=== PATIENT | female | born 1990 | race Caucasian/White ===

== ENCOUNTER 2024-05-30 08:39 | Emergency (ER) | payer OTHER, SELFPAY ==
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
[2024-05-30 09:13] VITALS: BP 127/80; PULSE 89; RESP 16; TEMP 36.8; O2SAT 99; BMI 18.6
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
[2024-05-30] MEDS: AMOXICILLIN/CLAVULANATE POTASSIUM 875/125MG TABLET 1 EACH PO (09:37)
[2024-05-30] MEDS: IBUPROFEN 400 MG TABLET 800 MG PO (09:37)
[2024-05-30] MEDS: ONDANSETRON 4MG ODT 4 MG SL (09:38)
[2024-05-30] MEDS: ACETAMINOPHEN 500MG TAB 1000 MG PO (09:38)
[2024-05-30 09:42] LABS: Urine Pregnancy, HCG Qual. Negative (Negative)
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
[2024-05-30] MEDS: TET/DIPHTH/PERT-ADULT 0.5ML SYRINGE 0.5 ML IM (10:37)
[2024-05-30 11:29] VITALS: BP 111/71; PULSE 89; RESP 18; TEMP 36.7; O2SAT 99
== END 2024-05-30 11:30 | disposition home or self-care (01) ==
LOC: UTC 09:01 → ER 09:09
PROVIDERS: Emergency Provider Emergency Medicine; PCP Family Medicine
DX: R51.9 Headache, unspecified (principal); S06.0XAA Concussion with loss of consciousness status unknown, initial encounter; S60.519A Abrasion of unspecified hand, initial encounter; S01.85XA Open bite of other part of head, initial encounter; S05.02XA Injury of conjunctiva and corneal abrasion without foreign body, left eye, initial encounter; Y09 Assault by unspecified means; M54.9 Dorsalgia, unspecified; R26.81 Unsteadiness on feet; H53.453 Other localized visual field defect, bilateral; R42 Dizziness and giddiness; Z23 Encounter for immunization
CPT/HCPCS: 70450; 70486; 72125; 73130; 81025; 90471; 90715; 99285; Q0162